=== PATIENT | male | born 1945 | race Hispanic/Latino ===

== ENCOUNTER 2023-07-24 21:38 | Emergency (ER) | payer MEDICAID, SELFPAY ==
[2023-07-24 21:42] VITALS: BP 184/74
[2023-07-24 21:56] LABS: % Basophils 0.6 % (0-2); % Eosinophils 2.6 % (0-6); % Immature Granulocytes 0.4 % (0-0.5); % Lymphocytes 18.6 % (20.5-51.1); % Monocytes 7.8 % (1.7-9.3); Absolute Basophils 0.1 10^3/uL (0-0.2); Absolute Eosinophils 0.2 10^3/uL (0-0.7); Absolute Lymphocytes 1.5 10^3/uL (1.2-3.4); Absolute Monocytes 0.6 10^3/uL (0.1-0.6); Absolute Neutrophils 5.5 10^3/uL (1.4-6.5); Hematocrit 29.3 % (39.0-52.0); Hemoglobin 10.5 g/dL (13.0-18.0); Mean Corp Hgb Conc. 35.8 g/dL (33.0-37.0); Mean Corpuscular Hgb 30.8 pg (27.0-31.0); Mean Corpuscular Volume 85.9 fL (80.0-94.0); Mean Platelet Volume 8.9 fL (7.4-10.4); Nucleated Red Blood Cells % 0 % (-); Platelet Count 259 10^3/uL (130-400); Red Blood Cell Count 3.41 10^6/uL (4.70-6.10); Red Cell Dist. Width 12.8 % (11.5-14.5); White Blood Cell Count 7.8 10^3/uL (4.8-10.8)
[2023-07-24 22:20] LABS: ALT (SGPT) 16 U/L (0-50); AST (SGOT) 22 U/L (17-59); Alkaline Phosphatase 121 U/L (38-126); Blood Urea Nitrogen 23 mg/dl (9-20); Calcium 9.1 mg/dl (8.4-10.2); Carbon Dioxide 25 mmol/L (22-30); Chloride 92 mmol/L (98-107); Glucose 232 mg/dl (70-99); Potassium 4.9 mmol/L (3.5-5.1); Sodium 125 mmol/L (135-145); Total Bilirubin 0.5 mg/dl (0.2-1.3); Total Protein 6.6 g/dl (6.3-8.2); eGFR > 60.00
[2023-07-24 22:24] LABS: NT-proBNP 2030 pg/ml; Troponin I 0.019 ng/ml
[2023-07-24 23:32] VITALS: BP 156/70
[2023-07-25] VITALS: BP 168/70
[2023-07-25] MEDS: NSS 1000 IV (00:46)
--- NOTE | 2023-07-25 00:46 | ED.GENMED ---
History of Present Illness
General
Chief Complaint: Blood Pressure Problem
Source: patient and family
Exam Limitations: none
Time Seen by Provider: 07/25/23 00:35
Travel History
Have you had any contact with someone who has COVID-19?: No
Do you have any symptoms of coronavirus? Fever > 100 degrees, chills, cough, shortness of breath, sore throat, loss of taste or smell, muscle aches, or headache?: No
History of Present Illness
History of Present Illness:
See MDM
Past History
Past History
ED Past Medical History: Arrthythmia (afib), HTN, Hypercholesterolemia, NIDDM and Hypothyroidism
ED Past Surgical History: None
Social History
Tobacco: Non-smoker
Alcohol: Former
Drug: None
Living: with family
Phy Exam
Physical Exam
Physical Exam:
See MDM
Course
Orders/Labs/Results
Orders:
Orders
07/24/23 21:45
Electrocardiogram (*1) Urgent
Reason for Study: Hypertension, Benign
CT Head W/o Iv Contrast Urgent
Comment:
Reason For Exam: headache
CR Chest - 2 Views Urgent
Comment:
Reason For Exam: cough
07/24/23 21:46
EKG- Treatment ONCE
07/24/23 21:50
Complete Blood Count/With Diff Urgent
Comprehensive Metabolic Panel Urgent
NT-proBNP Urgent
Troponin I Urgent
07/25/23 00:45
0.9% Sodium Chloride 1000 ml [Nss] 1,000 ml IV BOLUS
07/25/23 00:56
Urinalysis Reflex To Culture Urgent
Date Specimen was Collected: 07/25/23
Time Specimen was Collected: 00:51
Urine Microscopic Reflex Cult Urgent
Abnormal Lab Results
07/24/23 07/25/23
21:50 00:56
RBC 3.41 L 10^6/uL
(4.70-6.10)
Hgb 10.5 L g/dL
(13.0-18.0)
Hct 29.3 L %
(39.0-52.0)
Lymphocytes % 18.6 L %
(20.5-51.1)
Sodium 125 L mmol/L
(135-145)
Chloride 92 L mmol/L
(98-107)
BUN 23 H mg/dl
(9-20)
Glucose 232 H mg/dl
(70-99)
Ur Occult Blood Reflex Trace A
(Negative)
Urine RBC 7-10 A /HPF
(0-2)
Urine Bacteria (Reflex) Few A
(Negative)
Urine Glucose 1+ A
(Negative)
Urine Albumin (Reflex) 2+ A
(Neg - Trace)
07/24/23 21:50
07/24/23 21:50
Vital Signs
Initial and Last Documented VS:
Initial Vital Signs
Temp Pulse Resp BP Pulse Ox
98.3 F 68 20 184/74 98
07/24/23 21:42 07/24/23 21:42 07/24/23 21:42 07/24/23 21:42 07/24/23 21:42
Last Documented Vital Signs
Temp Pulse Resp BP Pulse Ox
98.3 F 68 20 168/70 98
07/24/23 21:42 07/24/23 21:42 07/24/23 21:42 07/25/23 00:00 07/25/23 00:00
MDM/Problems Addressed
Differential Diagnosis Includes:
HPI and MDM Narrative:
78-year-old male presenting with daughter for evaluation of increased fatigue and weakness. She was concerned that he has a headache. Over the past few days, his blood sugars have been somewhat uncontrolled. She states it was 261 earlier today so
she gave extra insulin. Blood work shows that it is still mildly elevated at 232 but it is at least going down. He does admit to increased urination. He is currently on fluid restriction
On exam, he is well-appearing nontoxic. He has no focal neurodeficits. He is lying in bed smiling. I did discuss with daughter that his blood work is consistent with mild hyponatremia. This is an ongoing problem for him. Daughter states he
required IV fluids the last time it was low. Given the likely hyponatremia from hypovolemia, will give IV fluids. Will check urinalysis but otherwise discussed that he will be okay to go home and daughter agrees. However, we discussed calling PCP
tomorrow to have expedited follow-up to have his blood work rechecked
Physical exam
General: Well appearing and non-toxic
HEENT: protecting airway. Mildly dry mucous membrane
Neck: appears supple
CV: No evidence of cyanosis. Regular rate and rhythm
Resp: No accessory muscle use
Abd: Non-distended
Extremities: No deformities. No leg
Neuro: alert
Psych: Normal affect
Skin: Intact
Problems Addressed including Acute and Chronic Conditions affecting care:
1. Hypovolemic hyponatremia
Acuity: acute
Prognosis: stable
Details: Will give IV fluids
2. Headache
Acuity: acute
Prognosis: stable
Details: CT head negative
3. Hyperglycemia
Acuity: acute
Prognosis: stable
Details: Discussed having his poorly controlled blood sugars reevaluated by PT
Updates
After IV fluids, patient appears to be doing better.
Differential Diagnosis (but not limited to): UTI, dehydration, intracranial hemorrhage
Testing considered: Second troponin but he denies chest pain
Drug therapy (if applicable): OTC meds, please see d/c instruction regarding Rx drugs
Amount and/or Complexity of Data Reviewed
Clinical info obtained from: Patient and daughter
External data reviewed: N/A
Labs I independently reviewed (but not limited to): Hyponatremia, hyperglycemia
Radiology: The CT scan was personally and independently reviewed. In addition, official CT report reviewed.
Pulse Ox: not hypoxic
EKG independently reviewed: Sinus rhythm, left axis, no STEMI
Crm Functional Analyst: N/A
Critical Care: N/A
Risk of Complication:
Social Determinants of health: Good social support
Discussed with other providers: N/A
Escalation of Care includes Admit/Obs: After being observed in the Emergency Department, pt stable for discharge.
Occasional wrong word or 'sound a like' substitutions may have occurred due to the inherent limitations of voice recognition software. Read the chart carefully and recognize, using context, where substitutions have occurred.
*Critical Care Note
Total Time (30-74mins, 75-104mins- exclusive of procedures): Not Applicable
ED Attending Note
-
Portions of this chart may have been created with voice recognition software.� Occasional wrong word or��sound alike� substitutions may have occurred due to the inherent limitations of voice recognition software.
Discharge Plan
Departure
Patient Disposition: Home (Routine Discharge)
Date of Disposition: 07/25/23
Time of Disposition: 01:39
Patient with high blood pressure during this ER visit?: Yes
Discharge Problem:
Acute hyponatremia, Acute hyperglycemia
Instructions: Hyponatremia
Prescriptions:
No Action
metformin 1,000 mg tablet
1,000 mg PO BID@0800,1700
Eliquis 5 mg Tablet
5 mg PO BID Qty: 60 0RF
atorvastatin 20 mg Tablet
20 mg PO HS
valsartan 80 mg Tablet
80 mg PO DAILY
Tradjenta 5 mg Tablet
5 mg PO DAILY
insulin glargine 100 unit/mL (3 mL) insulin pen
10 unit SC HS
Patient Comments:
Will sometimes decrease dosing or hold altogether depending on what patient eats that day.
levothyroxine 50 mcg Tablet
50 mcg PO DAILY Qty: 0
amiodarone 100 mg Tablet
100 mg PO DAILY
furosemide 20 mg tablet
40 mg PO DAILY
Referrals:
Edison Roper MD [Family Provider] -
Activity Restrictions/Additional Instructions:
Please return for any worsening symptoms.
You may return at any time if you have further concerns.
Please follow up with your doctor at the first available appointment, preferably this week. Please discuss your low sodium levels and your elevated blood sugar.
Thank you for choosing [facility].
Interventions
Interventions:
*Risk Screen - Suicide Last Done: 07/24/23 21:42
*General Assessment Last Done: 07/24/23 23:46
*Neglect/Abuse Screening Last Done: 07/24/23 23:46
ED- Fall Risk Assessment Last Done: 07/24/23 23:35
*ED COVID-19 Vaccine History Last Done: 07/24/23 23:46
ED- Cardiac Assessment Last Done: 07/24/23 23:35
ED- Neurological Assessment Last Done: 07/24/23 23:35
ED- Pulmonary Assessment Last Done: 07/24/23 23:35
[2023-07-25 01:00] VITALS: BP 170/79
[2023-07-25 01:01] LABS: Urine Albumin 2+ (Neg - Trace); Urine Bilirubin Negative (Negative); Urine Character Clear (Clear); Urine Color Yellow; Urine Glucose 1+ (Negative); Urine Ketone Negative (Negative); Urine Leukocyte Negative (Negative); Urine Nitrite Negative (Negative); Urine Occult Blood Trace (Negative); Urine Urobilinogen Negative (Neg - 1+)
[2023-07-25 01:30] LABS: Urine Bacteria Few (Negative); Urine White Cell 0-2 /HPF (0-5)
== END 2023-07-25 01:51 | disposition home or self-care (01) ==
LOC: EMR 21:38
PROVIDERS: EMERGENCY PHYSICIAN Student in an Organized Health Care Education/Training Program; FAMILY PHYSICIAN Internal Medicine
DX: E87.1 Hypo-osmolality and hyponatremia (principal); E11.65 Type 2 diabetes mellitus with hyperglycemia; I10 Essential (primary) hypertension
CPT/HCPCS: 99285; 96360; 70450; 71046; 80053; 81003; 81015; 83880; 84484; 85025; 93005

== ENCOUNTER 2023-10-07 13:00 | Inpatient (IN) | payer MEDICAID, SELFPAY ==
[2023-10-07] VITALS (19 sets, daily range): BP systolic 142–190; BP diastolic 60–91; BMI 25.6
--- NOTE | 2023-10-07 07:54 | ED.GENMED ---
History of Present Illness
General
Chief Complaint: Fall
Source: patient
Exam Limitations: none
Time Seen by Provider: 10/07/23 07:43
Travel History
Have you had any contact with someone who has COVID-19?: No
Do you have any symptoms of coronavirus? Fever > 100 degrees, chills, cough, shortness of breath, sore throat, loss of taste or smell, muscle aches, or headache?: No
History of Present Illness
History of Present Illness:
See MDM
Past History
Past History
ED Past Medical History: Arrthythmia (afib), HTN, Hypercholesterolemia, NIDDM and Hypothyroidism
ED Past Surgical History: None
Social History
Tobacco: Non-smoker
Alcohol: Former
Drug: None
Living: with family
Phy Exam
Physical Exam
Physical Exam:
See MDM
Course
Orders/Labs/Results
Orders:
Orders
10/07/23 07:42
EKG [Electrocardiogram (*1)] Urgent
Reason for Study: Fatigue / Weakness
EKG- Treatment ONCE
10/07/23 07:50
CXR2 [CR Chest - 2 Views ] Urgent
Comment:
Reason For Exam: SOB
10/07/23 07:52
Urinalysis Reflex To Culture Urgent
10/07/23 07:55
Basic Metabolic Panel Urgent
Complete Blood Count/With Diff Urgent
NT-proBNP Urgent
Troponin I Urgent
10/07/23 08:45
Comprehensive Metabolic Panel Urgent
Magnesium Urgent
10/07/23 08:50
3% Sodium Chloride 250 ml [Sodium Chloride 3%] 250 ml IV ONCE
Abnormal Lab Results
10/07/23
07:55
RBC 3.21 L 10^6/uL
(4.70-6.10)
Hgb 9.8 L g/dL
(13.0-18.0)
Hct 26.2 L %
(39.0-52.0)
MCHC 37.4 H g/dL
(33.0-37.0)
Abs Immat Gran (auto) 0.1 H 10^3/uL
(0-0.05)
Absolute Lymphs (auto) 0.9 L 10^3/uL
(1.2-3.4)
Immature Gran % 0.8 H %
(0-0.5)
Neutrophils % 75.7 H %
(42.2-75.2)
Lymphocytes % 12.1 L %
(20.5-51.1)
Sodium 116 L* mmol/L
(135-145)
Chloride 85 L mmol/L
(98-107)
Glucose 195 H mg/dl
(70-99)
10/07/23 07:55
Vital Signs
Initial and Last Documented VS:
Initial Vital Signs
Temp Pulse Resp BP Pulse Ox
97.9 F 71 18 168/72 97
10/07/23 07:36 10/07/23 07:36 10/07/23 07:36 10/07/23 07:36 10/07/23 07:36
Last Documented Vital Signs
Temp Pulse Resp BP Pulse Ox
97.9 F 69 20 176/68 92
10/07/23 07:51 10/07/23 07:51 10/07/23 07:51 10/07/23 07:51 10/07/23 08:14
MDM/Problems Addressed
Differential Diagnosis Includes:
HPI and MDM Narrative:
78-year-old male presenting with family for evaluation of generalized weakness. He has multiple falls over the past several days. He was visiting family last week and went to an outside hospital where he had blood work performed. There was
concern for sodium of 128 and a hemoglobin of 9.5. Although patient was weak, there is apparently no admittable criteria. He was discharged home and continues to fall. Family is concerned because he is now not eating or drinking appropriately and
is becoming weaker
On exam, patient does appear mildly weak and fatigued. There is a small abrasion to his left elbow without bony tenderness. He has no leg edema. Lungs appear clear. Will obtain basic blood work and urinalysis. Patient already had CT head during
his other visit which the report at bedside read no intracranial hemorrhage or mass
Physical exam
General: Weak and frail
HEENT: protecting airway
Neck: appears supple
CV: No evidence of cyanosis. Regular rate and rhythm
Resp: No accessory muscle use. Lungs appear clear
Abd: Non-distended
Extremities: No deformities. No leg edema
Neuro: alert
Psych: Normal affect
Skin: Intact
Problems Addressed including Acute and Chronic Conditions affecting care:
1. Generalized weakness
Acuity: acute
Prognosis: stable
Details: Will obtain basic blood work looking for evidence of hyponatremia or anemia or any other metabolic disturbance.
2. Hyponatremia
Acuity: acute
Prognosis: unstable
Details: Nephrology curbsided. Will start 3% saline at 30 mL an hour
Updates
Sodium 116. Will start 3% saline
Differential Diagnosis (but not limited to): UTI, hyponatremia, symptomatic anemia
Testing considered: CT head but this was already performed last week
Drug therapy (if applicable): OTC meds, please see d/c instruction regarding Rx drugs
Amount and/or Complexity of Data Reviewed
Clinical info obtained from: Patient and daughter
External data reviewed: N/A
Labs I independently reviewed (but not limited to): Hyponatremia
Radiology: N/A
Pulse Ox: not hypoxic
EKG independently reviewed: Sinus rhythm, left axis, no STEMI
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
Critical Care: The high probability of a clinically significant, sudden or life threatening deterioration of the endocrine system(s) required my full and direct attention, intervention and personal management. The aggregate critical care time was 35
minutes. This time is in addition to time spent performing reported procedures but includes the following:
[x] Data Review and interpretation
[x] Patient assessment and monitoring of vital signs
[x] Documentation
[x] Medication orders and management
Risk of Complication:
Social Determinants of health: Good social support
Discussed with other providers: N/A
Escalation of Care includes Admit/Obs: After being observed in the Emergency Department, pt stable for discharge.
Occasional wrong word or 'sound a like' substitutions may have occurred due to the inherent limitations of voice recognition software. Read the chart carefully and recognize, using context, where substitutions have occurred.
*Critical Care Note
Total Time (30-74mins, 75-104mins- exclusive of procedures): 35 min
ED Attending Note
-
Portions of this chart may have been created with voice recognition software.� Occasional wrong word or��sound alike� substitutions may have occurred due to the inherent limitations of voice recognition software.
Discharge Plan
Departure
Patient Disposition: Admit
Date of Disposition: 10/07/23
Time of Disposition: 08:53
Admit to: IMU
Presentation/result/management discussed w/ accepting MD/DO: Hospitalist
Discharge Problem:
Acute hyponatremia, Anemia
Prescriptions:
No Action
metformin 1,000 mg tablet
1,000 mg PO BID@0800,1700
Eliquis 5 mg Tablet
5 mg PO BID Qty: 60 0RF
atorvastatin 20 mg Tablet
20 mg PO HS
valsartan 80 mg Tablet
80 mg PO DAILY
Tradjenta 5 mg Tablet
5 mg PO DAILY
insulin glargine 100 unit/mL (3 mL) insulin pen
10 unit SC .PER SLIDING SCALE PRN (Reason: Diabetes)
Patient Comments:
Will sometimes decrease dosing or hold altogether depending on what patient eats that day.
levothyroxine 50 mcg Tablet
50 mcg PO DAILY Qty: 0
amiodarone 100 mg Tablet
200 mg PO DAILY
furosemide 20 mg tablet
40 mg PO DAILY
Referrals:
Edison Roper MD [Family Provider] -
Interventions
Interventions:
*Risk Screen - Suicide Last Done: 10/07/23 07:36
*General Assessment Last Done: 10/07/23 07:36
*Neglect/Abuse Screening Last Done: 10/07/23 07:36
ED- Fall Risk Assessment Last Done: 10/07/23 07:42
*ED COVID-19 Vaccine History Last Done: 10/07/23 07:36
ED-Musculoskeletal Assessment Last Done: 10/07/23 08:14
ED- Neurological Assessment Last Done: 10/07/23 08:14
ED-Skin Assessment Last Done: 10/07/23 08:14
Discharge Date and Time
Print Language: SLOVAK
[2023-10-07 08:14] LABS: % Basophils 0.5 % (0-2); % Eosinophils 2.5 % (0-6); % Immature Granulocytes 0.8 % (0-0.5); % Lymphocytes 12.1 % (20.5-51.1); % Monocytes 8.4 % (1.7-9.3); % Neutrophils 75.7 % (42.2-75.2); Absolute Eosinophils 0.2 10^3/uL (0-0.7); Absolute Immature Granulocytes 0.1 10^3/uL (0-0.05); Absolute Lymphocytes 0.9 10^3/uL (1.2-3.4); Absolute Monocytes 0.6 10^3/uL (0.1-0.6); Absolute Neutrophils 5.8 10^3/uL (1.4-6.5); Hematocrit 26.2 % (39.0-52.0); Hemoglobin 9.8 g/dL (13.0-18.0); Mean Corp Hgb Conc. 37.4 g/dL (33.0-37.0); Mean Corpuscular Hgb 30.5 pg (27.0-31.0); Mean Corpuscular Volume 81.6 fL (80.0-94.0); Mean Platelet Volume 8.9 fL (7.4-10.4); Nucleated Red Blood Cells % 0 % (-); Platelet Count 323 10^3/uL (130-400); Red Blood Cell Count 3.21 10^6/uL (4.70-6.10); Red Cell Dist. Width 12.6 % (11.5-14.5); White Blood Cell Count 7.6 10^3/uL (4.8-10.8)
[2023-10-07 08:39] LABS: Blood Urea Nitrogen 17 mg/dl (9-20); Calcium 8.6 mg/dl (8.4-10.2); Carbon Dioxide 22 mmol/L (22-30); Chloride 85 mmol/L (98-107); Glucose 195 mg/dl (70-99); eGFR > 60.00
[2023-10-07 08:41] LABS: NT-proBNP 5260 pg/ml; Sodium 116 mmol/L (135-145); Troponin I 0.029 ng/ml
[2023-10-07] MEDS: SODIUM CHLORIDE 3% 250 IV ×2 (09:33→23:10)
[2023-10-07 09:48] LABS: ALT (SGPT) 21 U/L (0-50); AST (SGOT) 27 U/L (17-59); Albumin 3.2 g/dl (3.5-5.0); Alkaline Phosphatase 78 U/L (38-126); Blood Urea Nitrogen 17 mg/dl (9-20); Calcium 8.6 mg/dl (8.4-10.2); Carbon Dioxide 23 mmol/L (22-30); Chloride 84 mmol/L (98-107); Glucose 187 mg/dl (70-99); Magnesium 1.7 mg/dl (1.6-2.3); Potassium 4.7 mmol/L (3.5-5.1); Sodium 116 mmol/L (135-145); Total Bilirubin 0.6 mg/dl (0.2-1.3); Total Protein 5.6 g/dl (6.3-8.2); eGFR > 60.00
[2023-10-07 11:24] LABS: Osmolality Serum 253 mOsm/kg (275-300)
[2023-10-07 12:11] LABS: Urine Albumin 3+ (Neg - Trace); Urine Bilirubin Negative (Negative); Urine Character Clear (Clear); Urine Color Yellow; Urine Glucose 1+ (Negative); Urine Ketone Trace (Negative); Urine Leukocyte Negative (Negative); Urine Nitrite Negative (Negative); Urine Occult Blood 1+ (Negative); Urine Urobilinogen Negative (Neg - 1+); Urine pH 6.5 (5.0-9.0)
--- NOTE | 2023-10-07 12:25 | HPS.HSE ---
Addendum entered and electronically signed by Yoseph Lind MD 10/07/23 13:15:
I saw and examined the patient.
The DIVISION LEADER or PA's note was reviewed and I agree with the note.
Comment: 78-year-old male who presents with chief complaints of nausea, vomiting, anorexia.
189/73, 69, 21, 97.9 �F, 96% room air
No acute distress, awake and alert
Regular rate and rhythm, normal S1-S2
Clear to auscultation bilaterally
Positive bowel sounds, soft, nontender, nondistended
Cranial nerves II to XII are intact
Lab Results
10/07/23 10/07/23 10/07/23
07:55 09:01 11:57
WBC 7.6
RBC 3.21 L
Hgb 9.8 L
Hct 26.2 L
MCV 81.6
MCH 30.5
MCHC 37.4 H
RDW 12.6
Plt Count 323
MPV 8.9
Abs Immat Gran (auto) 0.1 H
Absolute Neuts (auto) 5.8
Absolute Lymphs (auto) 0.9 L
Absolute Monos (auto) 0.6
Absolute Eos (auto) 0.2
Absolute Basos (auto) 0.0
Immature Gran % 0.8 H
Neutrophils % 75.7 H
Lymphocytes % 12.1 L
Monocytes % 8.4
Eosinophils % 2.5
Basophils % 0.5
Nucleated RBC % 0
Sodium 116 L* 116 L*
Potassium 4.7
Chloride 85 L 84 L
Carbon Dioxide 22 23
BUN 17 17
Creatinine 0.7 0.8
eGFR > 60.00 > 60.00
Glucose 195 H 187 H
Serum Osmolality 253 L
Calcium 8.6 8.6
Magnesium Cancelled 1.7
Total Bilirubin Cancelled 0.6
AST Cancelled 27
ALT Cancelled 21
Alkaline Phosphatase Cancelled 78
Troponin I 0.029
Wzx-[id number]-Ktpamwxmxmn Pept 5260
Total Protein Cancelled 5.6 L
Albumin Cancelled 3.2 L
Urine Color Yellow
Urine Clarity Clear
Urine pH 6.5
Ur Specific [place] 1.010
Urine Ketones Trace A
Ur Occult Blood Reflex 1+ A
Urine Nitrite (Reflex) Negative
Urine Bilirubin Negative
Urine Urobilinogen Negative
Leukocyte Esterase Rfl Negative
Urine RBC 3-6 A
Urine WBC (Reflex) 3-5
Ur Squamous Epith Cells 3-5
Urine Osmolality 544
Urine Sodium 43
Urine Glucose 1+ A
Urine Albumin (Reflex) 3+ A
CXR: Mild bibasilar interstitial and airspace opacities, new from prior and suggestive of pneumonitis/pneumonia.
Acute on chronic hyponatremia:
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
-3% ordered in ER
-BMP Q6H
-hold home
CXR findings noted. Pt without fever, leukocytosis, or respiratory symptoms. Check procal, continue to monitor.
Original Note:
Family Physician
-
Family Physician: Edison Roper
Chief Complaint
-
Nausea, vomiting, decreased appetite, posterior neck pain
History of Present Illness
78-year-old male from home with his daughter Kristy complaining of 2 days of nausea, vomiting, decreased appetite and posterior neck pain. She reports he did not take any of his medications this a.m. She also reports increased cough with phlegm
due to exacerbation of his allergies from pollen. Patient denies headache, blurred vision, chest pain, shortness of breath, palpitations, abdominal pain, fever, chills, diarrhea, urinary symptoms. He has past medical history of chronic
hyponatremia, hypothyroidism, Siadh, chronic diastolic CHF, paroxysmal A-fib with history of ablation, DM2, GERD, HLD.
Medical History
Past Medical History
Past Medical History: Reports Other
Additional Past Medical History:
Arrthythmia (paroxismal afib),
essential HTN,
Hypercholesterolemia,
NIDDM
Hypothyroidism
CHF - diastolic, EF not known
Past Surgical History: Reports Other
Additional Past Surgical History:
Cardiac ablation secondary to A-fib
Social History
Tobacco: Non-smoker
Alcohol: None
Drug: None
Living: With Family
Employment: Retired
Family History
Family History: Not pertinent
Allergies / Home Medications
Allergies reflects when Allergies were last updated in [facility].
Home Medications with original date entered in [facility]
Allergy/Medication List:
Allergies
Allergy/AdvReac Type Severity Reaction Status Date / Time
No Known Allergies Allergy Verified 10/07/23 07:36
Home Medications
metformin 1,000 mg tablet 1,000 mg PO BID@0800,1700 Diabetes 07/02/22
atorvastatin 20 mg tablet 20 mg PO HS High cholesterol 08/13/22
linagliptin 5 mg tablet (Tradjenta) 5 mg PO DAILY Diabetes 08/13/22
valsartan 80 mg tablet 80 mg PO DAILY Blood pressure 08/13/22
insulin glargine 100 unit/mL (3 mL) subcutaneous pen 10 - 16 unit SC HS Diabetes 09/12/22
amiodarone 100 mg tablet 200 mg PO DAILY Arrhythmia 01/24/23
furosemide 20 mg tablet 40 mg PO DAILY Fluid Retention/Swelling 03/12/23
acetaminophen 325 mg tablet (Tylenol) 650 mg PO Q6H PRN mild pain 10/07/23
apixaban 5 mg tablet (Eliquis) 5 mg PO BID Blood Clot Prevention/Tx 10/07/23
levothyroxine 150 mcg tablet 150 mcg PO DAILY Thyroid 10/07/23
omeprazole 20 mg capsule,delayed release 20 mg PO DAILY Gastrointestinal Issue 10/07/23
polyethylene glycol 3350 17 gram oral powder packet (Miralax) 17 g PO DAILY PRN constipation 10/07/23
Review of Systems
-
History Source: Patient and Family (Daughter philip at bedside)
A 12 point ROS was completed and negative except as noted: Yes
Constitutional: Reports Fatigue; Denies Fever or Chills
EENT: Denies Sore Throat or Runny Nose
Respiratory: Reports Cough (Productive mucus)
Cardiac: Denies Chest Pain, Diaphoresis, Palpitations or Syncope
Abdomen/GI: Reports Nausea and Vomiting; Denies Abdominal Pain, Diarrhea, Constipated, Bloody Stools, Black Stools or Anorexia
: Denies Dysuria, Frequency, Flank Pain, Incontinence, Difficulty Voiding or Urgency
Musculoskeletal: Denies Joint Pain or Edema
Skin: Denies Itching or Rash
Neurological: Denies Dizzy, Headache or Weakness
Endocrine: Reports No Symptoms
Hematologic/Lymphatic: Reports No Symptoms
Psych: Reports Calm
Physical Exam
Vital Signs
Vital Signs
Temp Pulse Resp BP Pulse Ox
97.9 F 69 21 189/73 96
10/07/23 07:51 10/07/23 12:00 10/07/23 12:00 10/07/23 12:00 10/07/23 11:00
Physical Exam
General: Comfortable and Conversant; No Pain, Fever or Chills
HEENT: NormoCephalic, Anicteric, Moist mucous membranes, PERRLA, [place] Conjunctivae, No Ptosis and Neck Nontender
Respiratory: Clear; No Wheezes, Rales or Rhonchi
Cardiac: S1/S2 and Regular Rhythm; No Murmur, Rub, Gallop or Peripheral Edema
GI: Soft, Non Tender, Non Distended, Normal Bowel Sounds and No Hepatosplenomegaly
Rectal: Deferred by Provider
Genito-urinary: Deferred by me
Musculoskeletal: No Clubbing, No Cyanosis and No Edema
Skin: Warm and Dry; No Rash
Neuro: AO x 3 (Per daughter at bedside), No Motor Deficits and No Sensory Deficits; No Slurred Speech, Facial Droop or Tremors
Psych: Calm
Laboratory Results
-
10/07/23 07:55
10/07/23 09:01
Laboratory Results
Total Bilirubin 0.6 mg/dl (0.2-1.3) 10/07/23 09:01
AST 27 U/L (17-59) 10/07/23 09:01
ALT 21 U/L (0-50) 10/07/23 09:01
Alkaline Phosphatase 78 U/L (38-126) 10/07/23 09:01
Troponin I 0.029 ng/ml 10/07/23 07:55
Data Reviewed
-
Diagnostic Radiology: Report Reviewed by me
Lab Data: Labs Reviewed by me
Impression/Plan
-
Impression/plan:
Admit to IMU
#Acute hypovolemic on chronic hyponatremia
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
Seen in this computer and this keyboard and thought to be related to CHF possible lung disease
2 days nausea, vomiting, headache
NA 116 baseline 128
-3% NSS
- consult Nephro
-Follow BMP q6h
-Follow urine Osmo, urine sodium, serum Osmo
CXR: Mild bibasilar interstitial and airspace opacities new from prior suggestive of pneumonitis/pneumonia
EKG: Sinus rhythm with first-degree AV block 70 bpm, QTc 496 MS
HTn-Benign
- bp 187/70
- pt missed am dose losartan
- will give Iv hydralazine 10 mg Prn SBP>165
#Hypothyroidism
-Check TSH with free T4 reflex
-Continue levothyroxine 150 mcg daily
#Chronic diastolic CHF
-I/O, daily weights
-Hold furosemide 40 mg daily
#Paroxysmal A-fib
#Hx cardiac ablation
-Continue Eliquis 5 mg twice daily, amiodarone 200 mg daily
#DM2
-Accu-Cheks with SSI low , check HgbA1c
- insulin glargine 16 units SQ at bedtime (will give half dose 8 units due to decreased appetite)
#Hold Tradjenta 5 mg daily, metformin 1000 mg twice daily as patient is on eating
#Chronic normocytic anemia
Hgb 9.8 baseline appears around 10.5
#GERD
-Continue omeprazole 20 mg daily
#HLD
-Continue atorvastatin 20 mg at bedtime
DVT prophylaxis
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
full code per daughter at bedside
[2023-10-07 12:30] LABS: Urine Sodium 43 mmol/L (30-90)
[2023-10-07 12:33] LABS: Osmolality Urine 544 mOsm/kg (300-900)
--- NOTE | 2023-10-07 13:19 | W.CON.NEPH ---
Consultation
-
Date/Time Consultation Requested: October 07, 2023 11 AM
Date/Time Consultation Performed: 10/07/2023 1 PM
Requesting Provider: Dr. Lind
Performing Provider: Dr. Cruz
Reason for Consultation: Hyponatremia
Medical History
-
Chief Complaint: Hyponatremia
History of Present Illness:
This is a 78-year-old gentleman who has diabetes mellitus type 2 on insulin therapy, hypertension on a multidrug regimen, paroxysmal atrial fibrillation on Eliquis therapy who was visiting family last week. Since being there he had begun to have
falls where he was feeling very weak. That taken him to a outside hospital where he was reported his sodium level was 128 but he was not admitted. They do not recall any intervention. As the week went on, his condition worsened. His appetite
remains poor and he was drinking very little fluids. On began also vomiting. He returned home on Saturday yesterday where he vomited again. Given his persistent weakness the family brought him to the emergency room and he was noted to have
a sodium level of 116.
Past Medical History
Hyponatremia possibly chronic, atrial fibrillation, anemia, diabetes mellitus type 2, hypertension, hypothyroidism, right upper lobe pulmonary granuloma, GERD, heart failure preserved ejection fraction
Social History
Tobacco: Non-Smoker
Alcohol: None
Family History
Family History: Not Pertinent
Allergies / Home Medications
Allergy/AdvReac Type Severity Reaction Status Date / Time
No Known Allergies Allergy Verified 10/07/23 07:36
�Medication �Instructions �Recorded �Confirmed �Type
metformin 1,000 mg tablet 1,000 mg PO BID@0800,1700 Diabetes 07/02/22 10/07/23 History
atorvastatin 20 mg tablet 20 mg PO HS High cholesterol 08/13/22 10/07/23 History
linagliptin 5 mg tablet (Tradjenta) 5 mg PO DAILY Diabetes 08/13/22 10/07/23 History
valsartan 80 mg tablet 80 mg PO DAILY Blood pressure 08/13/22 10/07/23 History
insulin glargine 100 unit/mL (3 10 - 16 unit SC HS Diabetes 09/12/22 10/07/23 History
mL) subcutaneous pen
amiodarone 100 mg tablet 200 mg PO DAILY Arrhythmia 01/24/23 10/07/23 History
furosemide 20 mg tablet 40 mg PO DAILY Fluid 03/12/23 10/07/23 History
Retention/Swelling
acetaminophen 325 mg tablet 650 mg PO Q6H PRN mild pain 10/07/23 10/07/23 History
(Tylenol)
apixaban 5 mg tablet (Eliquis) 5 mg PO BID Blood Clot 10/07/23 10/07/23 History
Prevention/Tx
levothyroxine 150 mcg tablet 150 mcg PO DAILY Thyroid 10/07/23 10/07/23 History
omeprazole 20 mg capsule,delayed 20 mg PO DAILY Gastrointestinal 10/07/23 10/07/23 History
release Issue
polyethylene glycol 3350 17 gram 17 g PO DAILY PRN constipation 10/07/23 10/07/23 History
oral powder packet (Miralax)
Review of Systems
-
No chest pain or shortness of breath. Poor appetite. No nausea. No issues with urination. Weakness as above, burning in his legs
All other systems: Negative unless noted
Physical Exam
Vital Signs
Vital Signs
Temp Pulse Resp BP Pulse Ox
97.9 F 70 24 189/73 94
10/07/23 07:51 10/07/23 13:00 10/07/23 13:00 10/07/23 12:00 10/07/23 13:00
Lab Results
WBC 7.6 10^3/uL (4.8-10.8) 10/07/23 07:55
RBC 3.21 10^6/uL (4.70-6.10) L 10/07/23 07:55
Hgb 9.8 g/dL (13.0-18.0) L 10/07/23 07:55
Hct 26.2 % (39.0-52.0) L 10/07/23 07:55
Plt Count 323 10^3/uL (130-400) 10/07/23 07:55
eGFR > 60.00 10/07/23 09:01
Luk-T-Mbycnaxjzqs Pept 5260 pg/ml 10/07/23 07:55
Albumin 3.2 g/dl (3.5-5.0) L 10/07/23 09:01
Physical Exam
Patient is awake alert oriented and in no distress. Mood and affect were pleasant, insight and judgment were good. Pupils are equal round and reactive to light, extraocular movements are intact, sclera were anicteric. Hearing was normal, ears and
nose are intact. Oropharynx was clear. Neck was supple with trachea midline and no thyromegaly. Heart was regular rate and rhythm without rubs. Lower extremities without edema. Lungs were clear to auscultation bilaterally and with normal
excursion. Abdomen was soft, nontender, with normal active bowel sounds, and no hepatosplenomegaly. Skin was without rash and with normal turgor.
Data Reviewed
-
Radiology: Image Personally Visualized and interpreted (Chest x-ray on October 07, 2023 by my reading shows bilateral light opacities)
Medical Tests (Nuc Med, Echo etc): Image Personally Visualized and interpreted ( EKG on October 07, 2023 by my read shows normal sinus rhythm first-degree AV block left axis deviation incomplete right bundle branch block prolonged QT nonspecific ST
changes)
Labs: Labs Reviewed by me (Sodium 116, potassium 4.7, chloride 84, bicarb 23, creatinine 0.8, sugar 187, urine osmolality 544, urine sodium 43, urinalysis with 1+ blood 3+ protein)
Old Records: Reviewed (On 07/24/2023 sodium 125)
Assessment/Plan
-
Assessment:
Hyponatremia acute on chronic
Hypertension
Diabetes mellitus type 2
Hypothyroidism
paroxysmal atrial fibrillation
Microhematuria
Proteinuria
Anemia
Peripheral neuropathy
Plan:
Hypertonic saline 30 cc/h
Check BMP residential through infusion
May benefit from Samsca in the morning
Check iron studies
Check urine protein creatinine ratio
Discussed with daughter
[2023-10-07] MEDS: APRESOLINE 10 MG IV (15:06)
--- NOTE | 2023-10-07 15:07 | PTCARENOTE ---
Received patient fro ED. Patient faroese speaking only. Patient's daughter in room to help translate. SR in 70's, bp 175/85,23,93% ra. Oriented patient to room. Discussed plan. Call fields in reach.
[2023-10-07 15:18] LABS: Procalcitonin < 0.05 ng/ml (0.0-0.25)
[2023-10-07 15:49] LABS: Blood Urea Nitrogen 16 mg/dl (9-20); Calcium 8.7 mg/dl (8.4-10.2); Carbon Dioxide 25 mmol/L (22-30); Chloride 86 mmol/L (98-107); Estimated Creatinine Clearance 60 ml/min; Glucose 169 mg/dl (70-99); Potassium 4.6 mmol/L (3.5-5.1); Sodium 118 mmol/L (135-145); eGFR > 60.00
[2023-10-07 15:50] LABS: Glucose - Point of Care 221 mg/dl (70-99)
[2023-10-07] MEDS: NOVOLOG FLEXPEN-LOW RESISTANCE 2 UNITS SC (15:54)
[2023-10-07 18:32] LABS: Glucose - Point of Care 260 mg/dl (70-99)
[2023-10-07 21:10] LABS: Blood Urea Nitrogen 16 mg/dl (9-20); Calcium 8.8 mg/dl (8.4-10.2); Carbon Dioxide 23 mmol/L (22-30); Chloride 87 mmol/L (98-107); Estimated Creatinine Clearance 60 ml/min; Glucose 219 mg/dl (70-99); Potassium 4.4 mmol/L (3.5-5.1); Sodium 119 mmol/L (135-145); eGFR > 60.00
[2023-10-07] MEDS: LIPITOR 20 MG PO (21:14)
[2023-10-07] MEDS: ELIQUIS 5 MG PO (21:14)
[2023-10-07] MEDS: LANTUS 0.0800000000000000017 UNITS SC (21:14)
[2023-10-07 21:20] LABS: Glucose - Point of Care 261 mg/dl (70-99)
[2023-10-07 23:54] LABS: Protein/creatinine Ratio 12.4; Urine Protein 1618 mg/dl
[2023-10-08] VITALS (16 sets, daily range): BP systolic 149–195; BP diastolic 67–90; PULSE 67–68; O2SAT 96; BMI 24.7
--- NOTE | 2023-10-08 02:38 | PTCARENOTE ---
Daughter at bedside to assist Pt. Pt 2029 Na 119, Nigh CABINET INST[employer]ER made aware. 3% sodium chloride ordered(see Mar). Requested labs be changed to 0330 and 0800, Pt Na has been climbing slowly , Night CABINET INSTALLER agreed. Pt flipping into Afib and self converting out.
Pt has PMH of Afib and is on Eliquis. Assessment care and vitals as charted
[2023-10-08 04:12] LABS: ALT (SGPT) 18 U/L (0-50); AST (SGOT) 28 U/L (17-59); Albumin 3.2 g/dl (3.5-5.0); Alkaline Phosphatase 81 U/L (38-126); Blood Urea Nitrogen 15 mg/dl (9-20); Calcium 8.8 mg/dl (8.4-10.2); Carbon Dioxide 24 mmol/L (22-30); Chloride 91 mmol/L (98-107); Estimated Creatinine Clearance 60 ml/min; Glucose 137 mg/dl (70-99); Iron 47 ug/dl (49-181); Potassium 4.2 mmol/L (3.5-5.1); Sodium 121 mmol/L (135-145); Total Bilirubin 0.7 mg/dl (0.2-1.3); Total Protein 5.7 g/dl (6.3-8.2); eGFR > 60.00
[2023-10-08 04:20] LABS: % Basophils 0.6 % (0-2); % Immature Granulocytes 0.4 % (0-0.5); % Monocytes 11.1 % (1.7-9.3); % Neutrophils 66.9 % (42.2-75.2); Absolute Eosinophils 0.3 10^3/uL (0-0.7); Absolute Lymphocytes 1.2 10^3/uL (1.2-3.4); Absolute Monocytes 0.8 10^3/uL (0.1-0.6); Absolute Neutrophils 4.6 10^3/uL (1.4-6.5); Hematocrit 27.8 % (39.0-52.0); Hemoglobin 10.2 g/dL (13.0-18.0); Mean Corp Hgb Conc. 36.7 g/dL (33.0-37.0); Mean Corpuscular Hgb 30.8 pg (27.0-31.0); Nucleated Red Blood Cells % 0 % (-); Platelet Count 314 10^3/uL (130-400); Red Blood Cell Count 3.31 10^6/uL (4.70-6.10); Red Cell Dist. Width 12.6 % (11.5-14.5); White Blood Cell Count 6.9 10^3/uL (4.8-10.8)
[2023-10-08 04:21] LABS: Percent Saturation 19 % (20-50); Total Iron Binding Capacity 238 ug/dl (261-462)
[2023-10-08 07:32] LABS: Glucose - Point of Care 175 mg/dl (70-99)
[2023-10-08] MEDS: DIOVAN 80 MG PO (08:34)
[2023-10-08] MEDS: NOVOLOG FLEXPEN-LOW RESISTANCE 1 UNITS SC (08:34)
[2023-10-08] MEDS: ELIQUIS 5 MG PO ×2 (08:35→19:32)
[2023-10-08] MEDS: PACERONE 200 MG PO (08:35)
[2023-10-08] MEDS: SYNTHROID 150 MCG PO (08:35)
[2023-10-08] MEDS: PROTONIX 40 MG PO (08:35)
[2023-10-08 09:06] LABS: Blood Urea Nitrogen 15 mg/dl (9-20); Calcium 8.8 mg/dl (8.4-10.2); Carbon Dioxide 21 mmol/L (22-30); Chloride 94 mmol/L (98-107); Estimated Creatinine Clearance 60 ml/min; Glucose 155 mg/dl (70-99); Potassium 4.3 mmol/L (3.5-5.1); Sodium 123 mmol/L (135-145); eGFR > 60.00
--- NOTE | 2023-10-08 09:38 | W.PN.HOSP.TC ---
Today's Communication/Plan
-
see bold
Assessment / Plan
Assessment / Plan
Gen: NAD, Awake and alert
Eyes: EOMI, PERRLA, no scleral icterus.
Neck: supple.
CV: RRR, +S1/S2, no m/r/g.
Resp: CTAB, no rales, wheezes, or rhonchi.
Abd: +BS, soft, NT, ND
Skin: No rashes.
Neuro: CN 2-12 intact, non-focal.
Psych: Normal mood and affect.
CXR: Mild bibasilar interstitial and airspace opacities, new from prior and suggestive of pneumonitis/pneumonia.
Acute on chronic hyponatremia:
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
-serum Osm 253, UOsm 544, Moshe 43
-3% NS x 2 given so far
-Na now 123
-renal following
Other problems:
Essential hypertension:
Hypothyroidism: Continue Levoxyl
Chronic HFpEF: Lasix on hold
PAF: h/o ablation, cont Eliquis/Amio
DM2: cont Lantus/SSI/accuchecks
Chronic normocytic anemia, hemoglobin stable
GERD: cont PPI
HLD: cont statin
CXR findings noted. Pt without fever, leukocytosis, or respiratory symptoms. Procal NEG, continue to monitor.
Pt's son updated at bedside.
FULL/Eliquis
Anticipated Discharge: 24 - 48 hours
Subjective/Interval History
-
Date of Service: October 08, 2023
Denies chest pain or shortness of breath. Says he feels 'good.'
Objective Data
-
Labs:
Laboratory Results
10/08/23 10/08/23 10/08/23
03:30 03:45 03:45
WBC 6.9
Hgb 10.2 L
Hct 27.8 L
Plt Count 314
Sodium Cancelled 121 L Cancelled
Potassium Cancelled 4.2
Chloride Cancelled
Carbon Dioxide Cancelled
BUN Cancelled
Creatinine Cancelled
Glucose Cancelled
Calcium Cancelled
Total Bilirubin
AST
ALT
Alkaline Phosphatase
10/08/23 10/08/23 10/08/23
03:45 03:45 03:45
WBC
Hgb
Hct
Plt Count
Sodium
Potassium Cancelled
Chloride 91 L Cancelled
Carbon Dioxide 24 Cancelled
BUN 15
Creatinine
Glucose
Calcium
Total Bilirubin
AST
ALT
Alkaline Phosphatase
10/08/23 10/08/23 10/08/23
03:45 03:45 03:45
WBC
Hgb
Hct
Plt Count
Sodium
Potassium
Chloride
Carbon Dioxide
BUN Cancelled
Creatinine 0.8 Cancelled
Glucose 137 H Cancelled
Calcium 8.8
Total Bilirubin
AST
ALT
Alkaline Phosphatase
10/08/23 10/08/23 10/08/23
03:45 08:15 14:00
WBC
Hgb
Hct
Plt Count
Sodium 123 L Pending
Potassium 4.3 Pending
Chloride 94 L Pending
Carbon Dioxide 21 L Pending
BUN 15 Pending
Creatinine 0.8 Pending
Glucose 155 H Pending
Calcium Cancelled 8.8 Pending
Total Bilirubin 0.7
AST 28
ALT 18
Alkaline Phosphatase 81
Vital Signs:
Vital Signs
Temp Pulse Resp BP Pulse Ox
97.9 F 67 23 160/67 94
10/08/23 07:04 10/08/23 06:06 10/08/23 06:06 10/08/23 06:06 10/08/23 06:06
I&O
10/07/23 10/08/23 10/09/23
06:59 06:59 06:59
Intake Total 350 / 350
Output Total 200 / 200
Balance 150 / 150
--- NOTE | 2023-10-08 11:06 | W.PN.NEPH.PH ---
Today's Communication / Plan
-
- nephrotic syndrome w/u
- allow autocorrection of Na. continue q6h BMPs
Assessment/Plan
-
Assessment:
Hyponatremia acute on chronic
Hypertension
Diabetes mellitus type 2
Hypothyroidism
paroxysmal atrial fibrillation
Microhematuria
Proteinuria
Anemia
Peripheral neuropathy
Plan:
Hold further HTS
Na from 116 --> 123. 7 pt correction over 24 hours
- as patient likely has some component of hypovolemic hyponatremia, i expect he will start to autocorrect as his appetite improves
Hold off from Samsca, encourage solute intake
Continue to trend BMPs
UPCR of 12.4 --> will initiate nephrotic syndrome workup. fortunately Cr is stable.
Discussed with daughter at bedside
-
-
Date of Service: October 08, 2023
CC / HPI / ROS
-
Chief Complaint:
hyponatremia
History of Present Illness:
Na 116, improving now
nephrotic range proteinuria
Review of Systems:
feeling much better
Labs
-
Labs:
WBC 6.9 10^3/uL (4.8-10.8) 10/08/23 03:45
RBC 3.31 10^6/uL (4.70-6.10) L 10/08/23 03:45
Hgb 10.2 g/dL (13.0-18.0) L 10/08/23 03:45
Hct 27.8 % (39.0-52.0) L 10/08/23 03:45
Plt Count 314 10^3/uL (130-400) 10/08/23 03:45
eGFR > 60.00 10/08/23 08:15
Agy-M-Upctrjgepbg Pept 5260 pg/ml 10/07/23 07:55
Albumin 3.2 g/dl (3.5-5.0) L 10/08/23 03:45
Physical Exam
-
Vital Signs:
Vital Signs
Temp Pulse Resp BP Pulse Ox
97.9 F 71 24 159/68 96
10/08/23 07:04 10/08/23 10:02 10/08/23 10:02 10/08/23 10:02 10/08/23 09:52
Cardiovascular:: Regular rate and rhythm
Respiratory:: Bilateral: CTA
Lung Excursion:: Normal
Abdomen:: Nontender and Soft
Bowel Sounds:: Normal
Extremity Edema:: None: Bilateral:
Gutierrez Catheter: No
[2023-10-08 12:01] LABS: Glucose - Point of Care 249 mg/dl (70-99)
[2023-10-08] MEDS: NOVOLOG FLEXPEN-LOW RESISTANCE 300 UNITS SC (13:07)
--- NOTE | 2023-10-08 14:48 | CM ---
Addendum entered by Shireen Lugo RN 10/08/23 15:10:
Spoke with [facility]; they do not have any [place] Zealander speaking nurses. The daughter will be available to translate at home.
Original Note:
New Zealander speaking patient with Dx hyponatremia. PT recommends Outpatient Therapy. OT recommends home w/ no needs.
Met with patient, , daughter Shirlene and son John;
the daughter states that the patient resides with his , son in law, 2 grand-children in a 2 story house with 2 HALLEY.
He has been independent in ADLs and ambulation until last 10/02 when he felt weak and fell 3x at home, and he began using his 's RW.
The patient does not drive. Shirlene does grocery shopping for the family.
DME - [facility]
No prior VN or SNF
PCP - [facility]
Pharmacy - [facility]
Offered VN for nurse check and daughter agrees to VN- she would also like PT as patient's PCP was suggesting PT, and she agrees to a referral to [facility]. Requested SN & PT.
Spoke with [facility]; they do not have any [place]alander speaking nurses.
Plan home with [facility].
[2023-10-08 16:40] LABS: Glucose - Point of Care 208 mg/dl (70-99)
[2023-10-08] MEDS: NOVOLOG FLEXPEN-LOW RESISTANCE 2 UNITS SC (16:58)
[2023-10-08 17:59] LABS: Blood Urea Nitrogen 15 mg/dl (9-20); Calcium 8.3 mg/dl (8.4-10.2); Carbon Dioxide 23 mmol/L (22-30); Chloride 91 mmol/L (98-107); Estimated Creatinine Clearance 53 ml/min; Glucose 180 mg/dl (70-99); Potassium 4.4 mmol/L (3.5-5.1); Sodium 121 mmol/L (135-145); eGFR > 60.00
--- NOTE | 2023-10-08 18:12 | PTCARENOTE ---
Patient ordered 250ml 3% saline at 30ml/hr. Confirmed with Doreen NUNO RN that patient does not need a PICC line at this time.
[2023-10-08] MEDS: SODIUM CHLORIDE 3% 250 IV (18:44)
--- NOTE | 2023-10-08 19:34 | PTCARENOTE ---
Pt received from previous RN. Pt AAO, primarily Wolof speaking. Sales [employer] device in room. Daughter at bedside. Pt took PM meds with water without complication. Currently receiving 3% sodium chloride infusion at 30/ml/hr. RR even and unlabored.
Call fields in reach.
[2023-10-08 21:59] LABS: Glucose - Point of Care 187 mg/dl (70-99)
[2023-10-08] MEDS: LANTUS 0.0800000000000000017 UNITS SC (22:14)
[2023-10-08] MEDS: LIPITOR 20 MG PO (22:14)
[2023-10-09 00:30] VITALS: BP 167/75
[2023-10-09] MEDS: APRESOLINE 10 MG IV (00:32)
[2023-10-09] MEDS: SYNTHROID 150 MCG PO (05:31)
[2023-10-09 06:00] VITALS: BMI 25.6
[2023-10-09 06:25] LABS: % Basophils 0.9 % (0-2); % Eosinophils 4.7 % (0-6); % Immature Granulocytes 0.5 % (0-0.5); % Lymphocytes 14.8 % (20.5-51.1); % Monocytes 9.3 % (1.7-9.3); % Neutrophils 69.8 % (42.2-75.2); Absolute Basophils 0.1 10^3/uL (0-0.2); Absolute Eosinophils 0.4 10^3/uL (0-0.7); Absolute Lymphocytes 1.3 10^3/uL (1.2-3.4); Absolute Monocytes 0.8 10^3/uL (0.1-0.6); Hematocrit 27.2 % (39.0-52.0); Hemoglobin 9.6 g/dL (13.0-18.0); Mean Corp Hgb Conc. 35.3 g/dL (33.0-37.0); Mean Platelet Volume 8.7 fL (7.4-10.4); Nucleated Red Blood Cells % 0 % (-); Platelet Count 323 10^3/uL (130-400); White Blood Cell Count 8.6 10^3/uL (4.8-10.8)
[2023-10-09 06:49] LABS: ALT (SGPT) 17 U/L (0-50); AST (SGOT) 25 U/L (17-59); Albumin 3.1 g/dl (3.5-5.0); Alkaline Phosphatase 88 U/L (38-126); Blood Urea Nitrogen 15 mg/dl (9-20); Calcium 8.6 mg/dl (8.4-10.2); Carbon Dioxide 18 mmol/L (22-30); Chloride 96 mmol/L (98-107); Estimated Creatinine Clearance 60 ml/min; Glucose 175 mg/dl (70-99); Potassium 4.4 mmol/L (3.5-5.1); Sodium 123 mmol/L (135-145); Total Bilirubin 0.7 mg/dl (0.2-1.3); Total Protein 5.6 g/dl (6.3-8.2); eGFR > 60.00
[2023-10-09 07:55] VITALS: BP 161/67
[2023-10-09 08:00] LABS: Glucose - Point of Care 228 mg/dl (70-99)
[2023-10-09] MEDS: NOVOLOG FLEXPEN-LOW RESISTANCE 2 UNITS SC (08:24)
[2023-10-09] MEDS: ELIQUIS 5 MG PO ×2 (08:25→21:22)
[2023-10-09] MEDS: PROTONIX 40 MG PO (08:25)
[2023-10-09] MEDS: DIOVAN 80 MG PO (08:25)
[2023-10-09] MEDS: PACERONE 200 MG PO (08:26)
--- NOTE | 2023-10-09 09:47 | W.PN.NEPH.PH ---
Today's Communication / Plan
-
samsca today
Assessment/Plan
-
Assessment:
Hyponatremia acute on chronic
Hypertension
Diabetes mellitus type 2
Hypothyroidism
paroxysmal atrial fibrillation
Microhematuria
Proteinuria
Anemia
Peripheral neuropathy
Plan:
samsca
follow BMP
serologies pending for nephrosis, though most likely DM related
can consider renal bx as OP
-
-
Date of Service: October 09, 2023
CC / HPI / ROS
-
Chief Complaint:
hyponatremia
History of Present Illness:
Na 123 with 3%
nephrotic range proteinuria
BP stable
Review of Systems:
no CP/SOB
Labs
-
Labs:
WBC 8.6 10^3/uL (4.8-10.8) 10/09/23 06:02
RBC 3.20 10^6/uL (4.70-6.10) L 10/09/23 06:02
Hgb 9.6 g/dL (13.0-18.0) L 10/09/23 06:02
Hct 27.2 % (39.0-52.0) L 10/09/23 06:02
Plt Count 323 10^3/uL (130-400) 10/09/23 06:02
Sodium 123 mmol/L (135-145) L 10/09/23 06:02
Potassium 4.4 mmol/L (3.5-5.1) 10/09/23 06:02
Chloride 96 mmol/L (98-107) L 10/09/23 06:02
Carbon Dioxide 18 mmol/L (22-30) L 10/09/23 06:02
BUN 15 mg/dl (9-20) 10/09/23 06:02
Creatinine 0.8 mg/dL (0.7-1.3) 10/09/23 06:02
eGFR > 60.00 10/09/23 06:02
Glucose 175 mg/dl (70-99) H 10/09/23 06:02
Calcium 8.6 mg/dl (8.4-10.2) 10/09/23 06:02
Xvc-U-Rwsogrmteeu Pept 5260 pg/ml 10/07/23 07:55
Albumin 3.1 g/dl (3.5-5.0) L 10/09/23 06:02
Physical Exam
-
Vital Signs:
Vital Signs
Temp Pulse Resp BP Pulse Ox
97.6 F 71 18 161/67 96
10/09/23 07:55 10/09/23 07:55 10/09/23 07:55 10/09/23 07:55 10/09/23 07:55
Cardiovascular:: Regular rate and rhythm
Respiratory:: Bilateral: Coarse
Lung Excursion:: Normal
Abdomen:: Nontender and Soft
Bowel Sounds:: Normal
Extremity Edema:: None: Bilateral:
[2023-10-09] MEDS: SAMSCA 15 MG PO (10:25)
[2023-10-09 11:36] LABS: Glucose - Point of Care 312 mg/dl (70-99)
[2023-10-09] MEDS: NOVOLOG FLEXPEN-LOW RESISTANCE 4 UNITS SC (11:50)
--- NOTE | 2023-10-09 12:00 | W.PN.HOSP.TC ---
Today's Communication/Plan
-
see bold
Assessment / Plan
Assessment / Plan
Gen: NAD, Awake and alert
Eyes: EOMI, PERRLA, no scleral icterus.
Neck: supple.
CV: remains RRR, +S1/S2, no m/r/g.
Resp: remains CTAB, no rales, wheezes, or rhonchi.
Abd: remains +BS, soft, NT, ND
Skin: No rashes.
Neuro: CN 2-12 intact, non-focal.
Psych: Normal mood and affect.
CXR: Mild bibasilar interstitial and airspace opacities, new from prior and suggestive of pneumonitis/pneumonia.
Acute on chronic hyponatremia:
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
-serum Osm 253, UOsm 544, Moshe 43
-s/p 3% NS x 2
-Na now 123
-samsca 15mg today
-renal following
DM2:
-a1c 8.0%
-resume home Metformin
-increase Lantus to 16U
-change SSI to mod res
Other problems:
Essential hypertension: cont ARB
Hypothyroidism: Continue Levoxyl
Chronic HFpEF: Lasix on hold
PAF: h/o ablation, cont Eliquis/Amio
Chronic normocytic anemia, hemoglobin stable
GERD: cont PPI
HLD: cont statin
CXR findings noted. Pt without fever, leukocytosis, or respiratory symptoms. Procal NEG, continue to monitor.
Pt's daughter updated at bedside.
FULL/Eliquis
Anticipated Discharge: Within 24 hours
Subjective/Interval History
-
Date of Service: October 09, 2023
No new complaints.
Objective Data
-
Labs:
Laboratory Results
10/09/23
06:02
WBC 8.6
Hgb 9.6 L
Hct 27.2 L
Plt Count 323
Sodium 123 L
Potassium 4.4
Chloride 96 L
Carbon Dioxide 18 L
BUN 15
Creatinine 0.8
Glucose 175 H
Calcium 8.6
Total Bilirubin 0.7
AST 25
ALT 17
Alkaline Phosphatase 88
Vital Signs:
Vital Signs
Temp Pulse Resp BP Pulse Ox
97.6 F 71 18 161/67 96
10/09/23 07:55 10/09/23 07:55 10/09/23 07:55 10/09/23 07:55 10/09/23 07:55
I&O
10/08/23 10/09/23 10/10/23
06:59 06:59 06:59
Intake Total 350 / 350
Output Total 200 / 200
Balance 150 / 150
[2023-10-09 15:00] VITALS: BP 131/65
--- NOTE | 2023-10-09 15:05 | CM ---
Plan is that patient return to home with family and [facility] visiting nurses.
[place]
[phone]
[2023-10-09] MEDS: GLUCOPHAGE 1000 MG PO (16:52)
[2023-10-09] MEDS: NOVOLOG FLEXPEN-MODERATE RESISTANCE 3 UNITS SC (16:53)
[2023-10-09 16:54] LABS: Glucose - Point of Care 221 mg/dl (70-99)
[2023-10-09 21:15] LABS: Glucose - Point of Care 256 mg/dl (70-99)
[2023-10-09] MEDS: LIPITOR 20 MG PO (21:22)
[2023-10-09] MEDS: LANTUS 0.160000000000000003 UNITS SC (21:22)
[2023-10-09 23:46] VITALS: BP 149/70
[2023-10-10 00:12] LABS: Complement C3 97 mg/dl (88-165)
[2023-10-10] MEDS: SYNTHROID 150 MCG PO (05:29)
[2023-10-10 06:00] VITALS: BMI 25.1
[2023-10-10 07:00] VITALS: BP 167/77
[2023-10-10] MEDS: DIOVAN 80 MG PO (07:44)
[2023-10-10] MEDS: PROTONIX 40 MG PO (07:44)
[2023-10-10] MEDS: ELIQUIS 5 MG PO (07:45)
[2023-10-10] MEDS: GLUCOPHAGE 1000 MG PO (07:45)
[2023-10-10] MEDS: PACERONE 200 MG PO (07:45)
[2023-10-10] MEDS: NOVOLOG FLEXPEN-MODERATE RESISTANCE 1 UNITS SC (07:53)
[2023-10-10 07:55] LABS: Glucose - Point of Care 167 mg/dl (70-99)
--- NOTE | 2023-10-10 08:53 | W.PN.HOSP.TC ---
Today's Communication/Plan
-
d/c
Assessment / Plan
Assessment / Plan
Gen: NAD, Awake and alert
Eyes: EOMI, PERRLA, no scleral icterus.
Neck: supple.
CV: continues to remain RRR, +S1/S2, no m/r/g.
Resp: continues to remain CTAB, no rales, wheezes, or rhonchi.
Abd: continues to remain +BS, soft, NT, ND
Skin: No rashes.
Neuro: CN 2-12 intact, non-focal.
Psych: Normal mood and affect.
CXR: Mild bibasilar interstitial and airspace opacities, new from prior and suggestive of pneumonitis/pneumonia.
Acute on chronic hyponatremia:
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
-serum Osm 253, UOsm 544, Moshe 43
-s/p 3% NS x 2, Samsca 15mg
-Na now 133
-renal has cleared for d/c, restart lasix
DM2:
-a1c 8.0%
-cont Metformin/Lantus
-SSI/accuchecks
Other problems:
Essential hypertension: cont ARB
Hypothyroidism: Continue Levoxyl
Chronic HFpEF: Lasix on hold
PAF: h/o ablation, cont Eliquis/Amio
Chronic normocytic anemia, hemoglobin stable
GERD: cont PPI
HLD: cont statin
CXR findings noted. Pt without fever, leukocytosis, or respiratory symptoms. Procal NEG, continue to monitor.
Pt's daughter updated at bedside.
FULL/Eliquis
Total time spent on d/c = 31 min. This included today's physical exam, progress note, review of laboratory and diagnostic data, preparation of discharge documents and prescriptions, and discussions about the pt's hospital course and discharge plan
with the patient and other medical cash poster involved in the patient's care.
Anticipated Discharge: Today
Subjective/Interval History
-
Date of Service: October 10, 2023
No new complaints.
Objective Data
-
Labs:
Laboratory Results
10/10/23
08:12
WBC Pending
Hgb Pending
Hct Pending
Plt Count Pending
Sodium Pending
Potassium Pending
Chloride Pending
Carbon Dioxide Pending
BUN Pending
Creatinine Pending
Glucose Pending
Calcium Pending
Total Bilirubin Pending
AST Pending
ALT Pending
Alkaline Phosphatase Pending
Vital Signs:
Vital Signs
Temp Pulse Resp BP Pulse Ox
98.3 F 70 17 167/77 92
10/10/23 07:00 10/10/23 07:00 10/10/23 07:00 10/10/23 07:00 10/10/23 07:00
I&O
10/09/23 10/10/23 10/11/23
06:59 06:59 06:59
Intake Total 1020 / 1020
Output Total 1000 / 1000
Balance 20 / 20
[2023-10-10 09:11] LABS: % Basophils 0.8 % (0-2); % Eosinophils 5.7 % (0-6); % Immature Granulocytes 0.5 % (0-0.5); % Lymphocytes 16.9 % (20.5-51.1); % Monocytes 8.6 % (1.7-9.3); % Neutrophils 67.5 % (42.2-75.2); Absolute Basophils 0.1 10^3/uL (0-0.2); Absolute Eosinophils 0.5 10^3/uL (0-0.7); Absolute Lymphocytes 1.5 10^3/uL (1.2-3.4); Absolute Monocytes 0.8 10^3/uL (0.1-0.6); Absolute Neutrophils 5.9 10^3/uL (1.4-6.5); Hematocrit 30.5 % (39.0-52.0); Hemoglobin 10.6 g/dL (13.0-18.0); Mean Corp Hgb Conc. 34.8 g/dL (33.0-37.0); Mean Corpuscular Hgb 30.5 pg (27.0-31.0); Mean Corpuscular Volume 87.6 fL (80.0-94.0); Nucleated Red Blood Cells % 0 % (-); Platelet Count 385 10^3/uL (130-400); Red Blood Cell Count 3.48 10^6/uL (4.70-6.10); Red Cell Dist. Width 13.7 % (11.5-14.5); White Blood Cell Count 8.7 10^3/uL (4.8-10.8)
--- NOTE | 2023-10-10 09:36 | PN.DE.MGMTRT ---
Insulin Management
- -
10/10/2023: Diabetes Management Consult
78 year old male p/w N/V and weakness due to Acute on Chronic Hyponatremia.
PMH: Chronic diastolic HF, Paroxysmal A-fib, HTN, HLD, Chronic normocytic anemia, Hypothyroidism GERD and T2DM. A1C 8%, Cr 0.8, eGFR>60.
Was taking Metformin 1000 mg BID, Tradjenta 5mg daily and Lantus 16 units @ HS prior to admission.
His Tradjenta is NF and remains on hold. Current Diabetes regimen includes Lantus 16 units @ HS and Metformin 1000 mg BID
Pt awake, alert, oriented, Tuvaluan speaking, dtr at bedside and able to discuss diabetes mgt. Dtr reports that pt has been discharged and ready to leave at this time. States that pt has a Glucose monitor and a CGM for blood sugar monitoring at home.
Diabetes is managed by his PCP.
Premeal blood sugar is elevated 221 to 312 as well as HS-->256. FBG 167 this AM.
Will start Januvia 100mg daily, 1st dose NOW. Will switch back to linagliptin at discharge.
Will increase Lantus to 18 units @ HS. Instructed pt's Dtr to f/u with PCP for insulin dose adjustments.
Cont OP regimen at discharge.
Diabetes History
- -
Type of Diabetes: 2 requiring insulin
Pre-Admission Diabetes Regimen
Lab Results
Hemoglobin A1c 8.0 % (4.0-5.6) H 10/08/23 03:45
Insulin Pump Settings
IP Diabetes Regimen
10/09/23 10/09/23 10/09/23
11:35 16:53 21:14
POC Glucose 312 H 221 H 256 H
10/10/23
07:53
POC Glucose 167 H
Meal type: Lunch
Amount consumed: 100%
Patient Education
--- NOTE | 2023-10-10 09:59 | PTCARENOTE ---
24 hour urine complete this am and sent to lab. Daughter remains with patient, assists with language barrier. No c/o pain or discomfort at present.
[2023-10-10 10:47] LABS: ALT (SGPT) 17 U/L (0-50); AST (SGOT) 23 U/L (17-59); Albumin 3.5 g/dl (3.5-5.0); Alkaline Phosphatase 99 U/L (38-126); Blood Urea Nitrogen 15 mg/dl (9-20); Calcium 9.1 mg/dl (8.4-10.2); Carbon Dioxide 20 mmol/L (22-30); Chloride 104 mmol/L (98-107); Estimated Creatinine Clearance 48 ml/min; Glucose 157 mg/dl (70-99); Potassium 4.7 mmol/L (3.5-5.1); Sodium 133 mmol/L (135-145); Total Bilirubin 0.6 mg/dl (0.2-1.3); eGFR > 60.00
--- NOTE | 2023-10-10 10:52 | W.PN.NEPH.PH ---
Today's Communication / Plan
-
restart lasix
Assessment/Plan
-
Assessment:
Hyponatremia acute on chronic
Hypertension
Diabetes mellitus type 2
Hypothyroidism
paroxysmal atrial fibrillation
Microhematuria
Proteinuria
Anemia
Peripheral neuropathy
Plan:
restart lasix
ok for dc from renal standpoint
check BMP next week
-
-
Date of Service: October 10, 2023
CC / HPI / ROS
-
Chief Complaint:
hyponatremia
History of Present Illness:
Na 133 with samsca
nephrotic range proteinuria
BP stable
Review of Systems:
no CP/SOB
Labs
-
Labs:
WBC 8.7 10^3/uL (4.8-10.8) 10/10/23 08:12
RBC 3.48 10^6/uL (4.70-6.10) L 10/10/23 08:12
Hgb 10.6 g/dL (13.0-18.0) L 10/10/23 08:12
Hct 30.5 % (39.0-52.0) L 10/10/23 08:12
Plt Count 385 10^3/uL (130-400) 10/10/23 08:12
Sodium 133 mmol/L (135-145) L D 10/10/23 08:12
Potassium 4.7 mmol/L (3.5-5.1) 10/10/23 08:12
Chloride 104 mmol/L (98-107) 10/10/23 08:12
Carbon Dioxide 20 mmol/L (22-30) L 10/10/23 08:12
BUN 15 mg/dl (9-20) 10/10/23 08:12
Creatinine 1.0 mg/dL (0.7-1.3) 10/10/23 08:12
eGFR > 60.00 10/10/23 08:12
Glucose 157 mg/dl (70-99) H 10/10/23 08:12
Calcium 9.1 mg/dl (8.4-10.2) 10/10/23 08:12
Apd-M-Okjehkmwjlp Pept 5260 pg/ml 10/07/23 07:55
Albumin 3.5 g/dl (3.5-5.0) 10/10/23 08:12
Physical Exam
-
Vital Signs:
Vital Signs
Temp Pulse Resp BP Pulse Ox
98.3 F 70 17 167/77 92
10/10/23 07:00 10/10/23 07:00 10/10/23 07:00 10/10/23 07:00 10/10/23 07:00
Cardiovascular:: Regular rate and rhythm
Respiratory:: Bilateral: Coarse
Lung Excursion:: Normal
Abdomen:: Nontender and Soft
Bowel Sounds:: Normal
Extremity Edema:: None: Bilateral:
[2023-10-10 11:00] VITALS: BP 142/73
[2023-10-10] MEDS: LASIX 40 MG PO (11:04)
[2023-10-10] MEDS: JANUVIA 100 MG PO (11:04)
--- NOTE | 2023-10-10 11:41 | CM ---
Home today with [facility].
[facility]
[phone]
[2023-10-10 11:54] LABS: Glucose - Point of Care 258 mg/dl (70-99)
--- NOTE | 2023-10-10 13:02 | W.DCSUMMARY ---
Discharge Summary
Discharge Data
Date of Admission: 10/07/23
Date of Discharge: 10/10/23
-
Pending Results: No
Hospital Course
Primary diagnoses:
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
Secondary diagnoses:
Type 2 diabetes mellitus
Essential hypertension
Hypothyroidism
Chronic heart failure with preserved ejection fraction
Paroxysmal atrial fibrillation
Chronic normocytic anemia
Gastroesophageal reflux disease
Hyperlipidemia
Consultants:
Nephrology
Imaging:
CXR: Mild bibasilar interstitial and airspace opacities, new from prior and suggestive of pneumonitis/pneumonia.
Hospital course: 78-year-old male who presented with chief complaints of nausea, vomiting, anorexia as outlined in the H&P done on admission. He was found to have a sodium of 116 on admission, likely due to SIADH.
Serum Osm 253, UOsm 544, Moshe 43. Patient received 2 doses of 3% normal saline as well as 15 mg of Samsca. His sodium improved to 133. He has been medically cleared for discharge by nephrology. He will be on a fluid restriction as well as Lasix.
Discharge Plan
-
Patient Disposition: Home (Routine Discharge)
Discharge Diagnosis/Procedures: Hyponatremia
Diet: Diabetic, Carb Controlled
Additional Diets: Fluid restrict to 1200 cc/day
Activity: As tolerated
Driving Restrictions: As prior to admission
Blood Work: BMP in 1 week, prescription from PCP
Referrals:
Edison Roper MD [Family Provider] - in less than 1 week
Prescriptions:
Continued
metformin 1,000 mg tablet
1,000 mg PO BID@0800,1700
atorvastatin 20 mg Tablet
20 mg PO HS
valsartan 80 mg Tablet
80 mg PO DAILY
Tradjenta 5 mg Tablet
5 mg PO DAILY
insulin glargine 100 unit/mL (3 mL) insulin pen
10 - 16 unit SC HS
Patient Comments:
Will sometimes decrease dosing or hold altogether depending on what patient eats that day.
amiodarone 100 mg Tablet
200 mg PO DAILY
furosemide 20 mg tablet
40 mg PO DAILY
acetaminophen [Tylenol] 325 mg Tablet
650 mg PO Q6H PRN (Reason: mild pain)
polyethylene glycol 3350 [Miralax] 17 gram Powder In Packet
17 g PO DAILY PRN (Reason: constipation)
levothyroxine 150 mcg tablet
150 mcg PO DAILY
omeprazole 20 mg capsule,delayed release(DR/EC)
20 mg PO DAILY
Eliquis 5 mg tablet
5 mg PO BID
Discharge Orders:
Discharge Patient (As Directed); Ordered 10/10/23
Ordered By: Yoseph Lind
Discharge Date and Time
Print Language: HUNGARIAN
[2023-10-10 18:47] LABS: ANA, IgG Reflex to HEp-2 None Detected (None Detected)
[2023-10-11 00:52] LABS: Phospholipase A2 Receptor, IgG <1:10 (<1:10)
[2023-10-12 12:51] LABS: 24 Hour Urine Total Volume 3200 mL; Total Protein, Urine 4189 mg/d (<=150); Ur Free Lambda Excretion/day 23.33 mg/d; Urine Collection Length 24 hr; Urine Free Kappa Excretion/Day 94.85 mg/d; Urine Free Kappa Light Chains 29.64 mg/L (0.00-32.90); Urine Free Lambda Light Chains 7.29 mg/L (0.00-3.79)
[2023-10-12 13:46] LABS: Albumin 2.97 g/dL (3.75-5.01); Alpha 1 Globulin 0.29 g/dL (0.19-0.46); Alpha 2 Globulin 0.84 g/dL (0.48-1.05); SPEP IFE Reflex IFE Done; Total Protein-Electrophoresis 5.3 g/dL (6.3-8.2)
[2023-10-14 08:07] LABS: IgA 229 mg/dL (68-408); IgG 566 mg/dL (768-1632); IgM 41 mg/dL (35-263)
== END 2023-10-10 13:46 | disposition home health service (06) | DRG 644 ==
LOC: 4 WEST ACU 13:00
PROVIDERS: Clinical Nurse Specialist Family Health; Student in an Organized Health Care Education/Training Program; ADMITTING PHYSICIAN Internal Medicine; CONSULT PHYSICIAN Specialist; EMERGENCY PHYSICIAN Student in an Organized Health Care Education/Training Program; FAMILY PHYSICIAN Internal Medicine
DX: E22.2 Syndrome of inappropriate secretion of antidiuretic hormone (principal); I50.32 Chronic diastolic (congestive) heart failure; R29.6 Repeated falls; R31.29 Other microscopic hematuria; S50.312A Abrasion of left elbow, initial encounter; D64.9 Anemia, unspecified; E03.9 Hypothyroidism, unspecified; K21.9 Gastro-esophageal reflux disease without esophagitis; E78.00 Pure hypercholesterolemia, unspecified; I11.0 Hypertensive heart disease with heart failure; E11.40 Type 2 diabetes mellitus with diabetic neuropathy, unspecified; I48.0 Paroxysmal atrial fibrillation; W19.XXXA Unspecified fall, initial encounter; Y93.9 Activity, unspecified; Y92.9 Unspecified place or not applicable; Z79.84 Long term (current) use of oral hypoglycemic drugs; Z79.890 Hormone replacement therapy; Z79.01 Long term (current) use of anticoagulants; Z79.4 Long term (current) use of insulin
CPT/HCPCS: 71046; 80048; 80053; 81003; 81015; 81050; 82570; 82728; 82784; 82962; 83036; 83521; 83540; 83550; 83735; 83880; 83930; 83935; 84145; 84155; 84156; 84165; 84300; 84484; 85025; 86038; 86160; 86255; 86334; 86335; 93005; 96360; 96361; 97162; 97166; 99291

== ENCOUNTER → 2025-02-10 10:02 | Outpatient (REF) | payer MEDICAID, SELFPAY ==
[2025-02-10 11:01] LABS: Blood Urea Nitrogen 24 mg/dl (9-20); Calcium 9.2 mg/dl (8.4-10.2); Carbon Dioxide 25 mmol/L (22-30); Chloride 107 mmol/L (98-107); Glucose 179 mg/dl (70-99); Magnesium 2.2 mg/dl (1.6-2.3); Potassium 4.5 mmol/L (3.5-5.1); Sodium 139 mmol/L (135-145); eGFR 55.88
== END ==
LOC: REG 10:02
PROVIDERS: ATTENDING PHYSICIAN Internal Medicine Cardiovascular Disease; FAMILY PHYSICIAN Internal Medicine
DX: I48.0 Paroxysmal atrial fibrillation (principal); I50.30 Unspecified diastolic (congestive) heart failure
CPT/HCPCS: 36415; 80048; 83735

== ENCOUNTER 2025-02-17 05:53 | Day surgery (SDC) | payer MEDICAID, SELFPAY ==
[2025-01-25 09:31] VITALS: BMI 26.6
[2025-01-25 09:52] LABS: Hematocrit 34.2 % (39.0-52.0); Hemoglobin 11.5 g/dL (13.0-18.0); Mean Corp Hgb Conc. 33.6 g/dL (33.0-37.0); Mean Corpuscular Volume 89.1 fL (80.0-94.0); Nucleated Red Blood Cells % 0 % (-); Platelet Count 201 10^3/uL (130-400); Red Cell Dist. Width 12.6 % (11.5-14.5)
[2025-01-25 10:02] LABS: INR 1.35; PT 16.9 Sec (11.4-14.6)
[2025-01-25 10:13] LABS: ALT (SGPT) 23 U/L (0-50); AST (SGOT) 23 U/L (17-59); Albumin 4.0 g/dl (3.5-5.0); Alkaline Phosphatase 126 U/L (38-126); Blood Urea Nitrogen 37 mg/dl (9-20); Calcium 9.0 mg/dl (8.4-10.2); Carbon Dioxide 28 mmol/L (22-30); Chloride 105 mmol/L (98-107); Estimated Creatinine Clearance 32 ml/min; Glucose 242 mg/dl (70-99); Magnesium 2.3 mg/dl (1.6-2.3); Potassium 4.6 mmol/L (3.5-5.1); Sodium 138 mmol/L (135-145); Total Protein 6.5 g/dl (6.3-8.2); eGFR 47.36
--- NOTE | 2025-01-25 11:00 | HPS.HSE ---
Family Physician
-
Family Physician: Edison Roper
Chief Complaint
-
Persistent atrial fibrillation.
History of Present Illness
The patient is a 79-year-old male presenting today for persistent atrial fibrillation. He is accompanied by his daughter Shirlene as his primary language is [place]. He was initially diagnosed with atrial fibrillation in June 2022.
Symptoms associated with this diagnosis in the past include shortness of breath and fatigue. He has undergone five failed cardioversions previously. He ultimately underwent pulmonary vein isolation in February [address] Matthew Gonzales for his
arrhythmia. The patient and his daughter report no symptomatic recurrences of his arrhythmia since his ablation. He is on current pharmacological therapy with Amiodarone; however, the patient is hopeful to possibly come off this medication one day.
He does report compliance with Eliquis for oral anticoagulation due to a [id number] of 5. Per our recommendations, he will proceed with pulmonary vein isolation again for more definitive arrhythmia management. The plan would be to likely
discontinue Amiodarone after this ablation. He denies any current complaints today, such as chest pain, shortness of breath at rest, palpitations, nausea, vomiting, diarrhea, cough, sore throat, or fever.
Medical History
Past Medical History
Past Medical History: Reports Other
Additional Past Medical History:
1. Persistent atrial fibrillation, status post cardioversion x5 and pulmonary vein isolation 02/2023; pharmacological therapy with Amiodarone, oral anticoagulation with Eliquis.
2. Atrial tachycardia
3. Hypertension.
4. Hyperlipidemia.
5. First degree AV block.
6. Right bundle branch block.
7. Chronic diastolic heart failure, preserved ejection fraction.
8. Mild mitral regurgitation.
9. Mild aortic regurgitation.
10. Mild tricuspid regurgitation.
11. Right upper lobe pulmonary granuloma.
12. Acute kidney injury, improving with recent reduction in Lasix dosing.
13. Insulin-dependent diabetes.
14. GERD with chronic nausea.
15. Dysphagia.
16. Chronic dizziness.
17. Peripheral neuropathy.
18. Multilevel degenerative disc disease.
19. Hypothyroidism.
20. Iron deficiency anemia.
21. Chronic hyponatremia secondary to SIADH.
Past Surgical History: Reports None
Additional Past Surgical History:
1. Pulmonary vein isolation.
2. Cardioversion x5.
Social History
Tobacco: Non-smoker
Alcohol: None
Living: Other (The patient lives in a two-story home with his daughter, Shirlene, her , and her two children.)
Family History
Family History: Not pertinent
Allergies / Home Medications
Allergy/Medication List:
HOME MEDICATIONS:
1. Amiodarone 100 mg p.o. daily.
2. Atorvastatin 20 mg p.o. at bedtime.
3. Eliquis 5 mg p.o. twice a day.
4. Furosemide 20 mg p.o. daily.
5. Insulin glargine 10-20 units subcutaneous at bedtime.
6. Levothyroxine 150 mcg p.o. daily.
7. Insulin lispro sliding scale before breakfast and lunch.
8. Tradjenta 5 mg p.o. daily.
9. Valsartan 160 mg p.o. daily.
10. Tylenol 650 mg p.o. every 6 hours as needed.
11. Omeprazole 20 mg p.o. daily.
12. Miralax 17 grams p.o. daily as needed.
ALLERGIES: No known allergies.
Review of Systems
-
A 12 point ROS was completed and negative except as noted: Yes
Physical Exam
Vital Signs
Blood pressure 168/68. Heart rate 61. Respirations 18. Pulse ox 100% on room air.
Height 5 feet, 2.5 inches. Weight 67.1 kg. BMI 26.6.
Physical Exam
General: Well Developed, Well Nourished and No Apparent Distress
HEENT: NormoCephalic, Moist mucous membranes, Atraumatic and PERRLA
Respiratory: Clear
Cardiac: Bradycardia
GI: Soft, Non Tender and Non Distended
Musculoskeletal: No Edema and Normal Gait & Station
Skin: Warm and Dry
Neuro: AO x 3 and Nonfocal/grossly intact
Laboratory Results
-
01/25/25 09:17
01/25/25 09:17
Laboratory Results
PT 16.9 Sec (11.4-14.6) H 01/25/25 09:17
INR 1.35 01/25/25 09:17
Total Bilirubin 0.7 mg/dl (0.2-1.3) 01/25/25 09:17
AST 23 U/L (17-59) 01/25/25 09:17
ALT 23 U/L (0-50) 01/25/25 09:17
Alkaline Phosphatase 126 U/L (38-126) 01/25/25 09:17
Magnesium 2.3.
Type and screen O negative.
DIAGNOSTIC STUDIES as of 02/10/2025: Sodium 139. Potassium 4.5. BUN 24. Creatinine 1.3. Glucose 179. Calcium 9.2. Magnesium 2.2.
EKG 01/25/2025: Sinus bradycardia with first degree AV block. Left axis deviation. Moderate voltage criteria for LVH, may be normal variant. Nonspecific ST abnormality. QTcB >= [address] 02/01/2023: Separate right superior and right inferior pulmonary veins with early branching of the right middle lobe pulmonary vein just distal to the ostium of the right superior pulmonary vein. Large common ostium of the left superior and
inferior pulmonary veins. No evidence of left atrial appendage thrombus. Moderate cardiomegaly with global cardiac chamber enlargement, suggesting a dilated cardiomyopathy. 4.5 mm right upper lobe calcified pulmonary granuloma. Severe discogenic
degenerative disease in the cervical and thoracic spine.
Nuclear stress test 01/03/2023: Fixed defect in the basal inferior, mid inferior, and apical inferior segments consistent with soft tissue attenuation. Ejection fraction is 50%. This is a moderate risk study due to the pharmacological agent used.
Echocardiogram 09/13/2022: Mild concentric left ventricular hypertrophy. Ejection fraction is about 55% by visual estimation. Diastolic function is indeterminate due to underlying atrial fibrillation. Mildly dilated left atrium. Mildly thickened
mitral valve leaflets with mild mitral regurgitation. Mild aortic regurgitation. Mild tricuspid regurgitation with estimated pulmonary artery systolic pressure 45 mmHg, assuming a right atrial pressure of 3 mmHg. Trivial pericardial effusion.
Impression/Plan
-
IMPRESSION/PLAN:
1. Persistent atrial fibrillation: The patient is in need of pulmonary vein isolation with Dr. Matthew Gonzales on 02/17/2025. The benefits and risks of the procedure have been explained to the patient. The patient understands these risks and
wishes to proceed. He will not be required to undergo a pre-procedural transesophageal echocardiogram as he has been compliant with his home oral anticoagulation. He is aware to continue his Eliquis uninterrupted. He will take no medications the
morning of his ablation.
2. Acute kidney injury in the setting of diuretic use: The patient creatinine was noted to improve on repeat blood work with a reduction in his Lasix dosing from 40 to 20 mg p.o. daily. We would expect continual improvement of his renal function
while on this adjusted dose.
[2025-02-17] VITALS (12 sets, daily range): BP systolic 123–201; BP diastolic 59–92; BMI 25.8
[2025-02-17 06:44] LABS: Glucose - Point of Care 121 mg/dl (70-99)
--- NOTE | 2025-02-17 08:03 | ITS.CL.ABL ---
[facility] Laboratory Technician - Ablation
Ablation
Procedure Report:
ELECTROPHYSIOLOGIC STUDY AND POSSIBLE ABLATION
DATE: February 17, 2025
Primary Care Provider: Edison Roper MD
INDICATION:
Symptomatic Atrial Fibrillation.
Persistent
HISTORY: See H and P.
Symptomatic AF, poorly controlled with attempted medical therapy.
He has symptomatic persistent atrial fibrillation which has been associated with decompensations of� HFpEF.
He had a pulmonary vein isolation 02/15/2023.
EKG from 03/06/2023 showed recurrence of Afib and he underwent CV03/12/2023.
He saw his PCP in mid March and was back in Afib.
Extended outpatient monitoring from April 2023 for 7 days shows persistence of atrial fibrillation/atrial tachycardia.
Amiodarone, which had previously been reduced to 100 mg daily, was once again increased to 200 mg daily and subsequently sinus rhythm resulted.�
He and his daughter expressed strong preference to attempt to stop amiodarone, avoid long-term amiodarone drug therapy.
We talked about the possibility of coming off of amiodarone but given that he has had recurrences of atrial fibrillation off of amnio and even on low-dose amiodarone and he has had decompensated heart failure associated with recurrences of atrial
fibrillation.
Ultimately was decided to move towards repeat mapping and ablation in an effort to avoid long-term amiodarone antiarrhythmic drug therapy for rhythm control.
HAS-BLED: 1
Age
CHADSVASc: 5
HFpEF
HTN
Age
DM
PRESENTING RHYTHM:SR
HISTORY: See H and P.
Symptomatic AF, poorly controlled with attempted medical therapy.
ANTIARRHYTHMIC DRUG: Amiodarone
ANTICOAGULATION: Apixaban 5 mg twice daily
'TIME-OUT': called and confirmed.
SEDATION/ANESTHESIA: provided via the anesthesia department using general anesthesia.
PROCEDURE:
Ultrasound Guidance with real-time visualization of needle insertion and vessel patency performed by tn for femoral venous Vascular Access.
Under real-time US guidance, the needle was advanced with negative pressure into the vein. The needle was seen entering the vessel lumen with a good return of dark red flow, the syringe was removed, non-pulsatile, dark red blood low was noted and
the wire was passed without difficulty, then the needle was removed. US confirmed the wire was in the vein, not going into an artery,
Images were taken and saved for the patient's permanent record. Imaging findings typical femoral venous anatomy. Direct visualization of needle puncture into the femoral vein was observed and recorded.
A decapolar CS catheter was placed within the CS for mapping and pacing.
The intracardiac ultrasound catheter was positioned in the RA for continuous intracardiac ultrasound imaging.
Heparin bolus and infusion to target ACT at 300 -350 seconds was administered. Transseptal puncture was performed. This entailed advancing a sheath with dilator into the superior vena cava and withdrawing both (monitoring intracardiac ultrasound,
fluoroscopy and tip pressure) with the tip oriented toward the atrial septum. The fossa ovalis was engaged (indicated by sudden displacement of the sheath tip as well as tenting of the fossa seen on intracardiac ultrasound).
Transseptal puncture was performed. Left atrial catheter position was confirmed by echocardiographic imaging, pressure monitoring (LA mean pressure 15 mm Hg) and fluoroscopy. The sheath was advanced over the dilator and positioned in the left
atrium.
The [employer] multipolar mapping/ablation Sphere-9 catheter was positioned through the transseptal sheath for high density mapping.
Geometry and voltage mapping was performed using the [employer] mapping system for three-dimensional electroanatomical mapping.
Catheter positioning was guided and confirmed using both I.C.E. and fluoroscopy.
High density electroanatomical three-dimensional mapping demonstrated four PVs: LSPV, LIPV, RSPV, RIPV.
Ablation strategy included PVI as well as mapping for extra PV contributors to atrial fibrillation which would also be targeted if present.
There is reconnection of the right superior pulmonary vein towards its anterior quadrant as well as the right inferior pulmonary vein towards its inferior quadrant and and the left inferior pulmonary vein towards its inferior quadrant
Pulsed electric field energy delivered via the sphere 9 catheter we isolated the pulmonary veins.
After accomplishing pulmonary venous isolation, mapping identified additional areas likely to be extra PV contributors to atrial fibrillation. These areas demonstrated patchy low voltage as well as complex fractionated electrograms. These areas can
be sites for the formation of rotors which can drive and maintain atrial fibrillation. These areas are known to be significant contributors to initiation and perpetuation of atrial fibrillation.
Additional energy applications/additional ablation sets targeted extra PV contributors to atrial fibrillation.
Targets for additional PFA ablation included:
LA posterior wall targeted with pulsed electric field energy isolating the posterior wall of the left atrium
After ablation of the posterior wall, additional targets were addressed:
LA inferior floor
Anterior LA roof
These areas were ablated using pulsed electric field energy eliminating the extra PV contributors to atrial fibrillation.
Post ablation mapping finds entrance and exit block at each of the pulmonary veins, the LA posterior wall and at the additional lines at Anterior roof of the LA and the Inferior/floor of the LA rendering the sites no longer able to contribute to
atrial fibrillation.
Programmed electrical stimulation was then performed and with burst atrial pacing at 260 ms a stable atrial tachycardia at cycle length 500 ms was induced. Entrainment from the right atrium finds that the right atrium is outside the tachycardia
circuit. High density electroanatomic activation in voltage mapping finds micro reentrant left atrial tachycardia at the floor of the left atrium just outside the posterior inferior quadrant of the left inferior pulmonary vein. Delivery of pulsed
electric field energy to this area terminated the atrial tachycardia. Once ablation in and around this area was completed programmed electrical stimulation was repeated. Programmed electrical stimulation now could induce only nonsustained atrial
tachycardia as well as very short runs of sustained self terminating irregular atrial tachycardia.
I.C.E. :
Pre-Ablation Post-Ablation
LVEF: 55 % 55 %
WMA: none none
Pericardial effusion: none none
LA Pressure 15
COMPLICATIONS:
None
SUMMARY:
- Mapping and ablation to isolate the PVs resulting in electrical isolation of the pulmonary veins
- Additional AF ablation sets X 3 after PVI (LA posterior wall, anterior roof of the left atrium, Inf/floor of the LA posterior wall) resulting in elimination of the targeted extra PV contributors to atrial fibrillation (Post wall, Inf LA
- Mapping and ablation of second tachycardia (left atrial micro reentrant atrial tachycardia) rendering it noninducible with programmed electrical stimulation
- 3-D Electroanatomical Mapping
- Intracardiac Ultrasound
- Ultrasound guidance for vascular access
Post ablation, I discussed today's findings and results with the patient's daughter, Shirlene.
RECOMMENDATIONS:
- Observe in monitored bed.
- Maintain oral anticoagulation.
- Continue amiodarone until his office visit in August 2025 when she returns from [facility].
- Office visit with Criss Ridley [employer] is scheduled for later this month prior to his trip to [facility].
Copy to:
Edison Roper MD
[2025-02-17 08:51] LABS: ACT-LR - POC 335 Seconds (116-155)
[2025-02-17 08:58] LABS: Glucose - Point of Care 163 mg/dl (70-99)
[2025-02-17 09:40] LABS: ACT-LR - POC 369 Seconds (116-155)
[2025-02-17 10:05] LABS: ACT-LR - POC > 397 Seconds (116-155)
[2025-02-17 10:34] LABS: Glucose - Point of Care 191 mg/dl (70-99)
[2025-02-17] MEDS: DIOVAN 160 MG PO (11:47)
--- NOTE | 2025-02-17 15:14 | W.PN.UPDATE ---
Update Note
Progress Note Update
pt seen post PFA. Right groin site without ht/bleeding, non tender. Post EKG NSR w/1st deg AVB as before, no acute changes. Resume eliquis tonight at usual time, continue amiodarone as before. Followup at [facility] as scheduled. Home today if groin
site/tele remain stable
== END 2025-02-17 14:50 | disposition home or self-care (01) ==
LOC: CATH 05:53
PROVIDERS: ATTENDING PHYSICIAN Internal Medicine Cardiovascular Disease; FAMILY PHYSICIAN Internal Medicine
DX: I48.19 Other persistent atrial fibrillation (principal); Z79.01 Long term (current) use of anticoagulants; I44.0 Atrioventricular block, first degree
CPT/HCPCS: C1733; 36415; 80053; 82962; 83735; 85025; 85347; 85610; 86850; 86900; 86901; 86920; 86922; 93005; 93655; 93656; 93657; C1730; C1766; C1769; C1892; C1894